=== PATIENT | male | born 1945 | race Caucasian/White ===

== ENCOUNTER → 2019-09-30 | Outpatient (CLI) | payer MEDICARE ==
[~2019-09-30] MED LIST: ACET325T9 PO; AMLO10TA8 PO; ASPI-630 PO; CRESTOR40 MG PO; ENAL20TA PO; GABA300C18 PO; HYDR-2145 PO; HYDR-2761 PO; INSU100I13 SQ; INSU100V6 SQ; LIDO1ADH TP; METF500T16 PO; METO-239 PO; MULT-245 PO; OMEG1CAP27 PO; SERT50TA PO; TEST5GEL29 TP; VITA1TAB31 PO; [UNRECOGNIZED DRUG - CODE] MC
== END | disposition home or self-care (01) ==
LOC: LAB 12:54
PROVIDERS: ATTEND Surgery
DX: Z01.818 Encounter for other preprocedural examination (principal); Z11.59 Encounter for screening for other viral diseases; I65.21 Occlusion and stenosis of right carotid artery
CPT/HCPCS: C9803; U0003; 36415